=== PATIENT | female | born 1945 | race Caucasian/White ===

== ENCOUNTER 2017-04-08 12:00 | Emergency (ER) | payer OTHER ==
[~2017-04-08] VITALS: Ht 162.6 cm; Wt 73.4 kg
[2017-04-08] MEDS ORDERED: BUSP15 PO (12:40)
[2017-04-08] MEDS ORDERED: FLUT16H NASAL (12:40)
[2017-04-08] MEDS ORDERED: LISI-662 PO (12:40)
[2017-04-08] MEDS ORDERED: TRAZ-144 PO (12:40)
[2017-04-08] MEDS ORDERED: NYST15PO3 TP (12:40)
[2017-04-08] MEDS ORDERED: CEFP200T12 PO (12:40)
[2017-04-08] MEDS ORDERED: DOCU250C91 PO (12:40)
[2017-04-08] MEDS ORDERED: FAMO20 PO (12:40)
[2017-04-08] MEDS ORDERED: MELA3 PO (12:40)
[2017-04-08] MEDS ORDERED: BECL8.7A5 IH (12:40)
[2017-04-08] MEDS ORDERED: ATOR10TA84 PO (12:40)
[2017-04-08] MEDS ORDERED: PYRI60TA PO (12:40)
[2017-04-08] MEDS ORDERED: PARO20TA24 PO (12:40)
[2017-04-08] MEDS ORDERED: CALC1TAB85 PO (12:40)
[2017-04-08] MEDS ORDERED: MORP30 PO (12:40)
[2017-04-08] MEDS ORDERED: TROS60CA3 PO (12:40)
[2017-04-08] MEDS ORDERED: CLON.1 PO (12:40)
[2017-04-08] MEDS ORDERED: AMLO-512 PO (12:40)
[2017-04-08] MEDS ORDERED: HYDR-305 PO (12:40)
[2017-04-08] MEDS ORDERED: AUD NEB (12:40)
[2017-04-08] MEDS ORDERED: QUET25TA PO (12:40)
[2017-04-08] MEDS ORDERED: CLOP75 PO (12:40)
[2017-04-08] MEDS ORDERED: SIME80TA12 PO (12:40)
[2017-04-08] MEDS ORDERED: MAGN400T40 PO (12:40)
[2017-04-08] MEDS ORDERED: LACT1CAP58 PO (12:40)
[2017-04-08 12:56] LABS: BASOPHILS % (AUTO) 0.4 % (0.0-2.0); EOSINOPHILS % (AUTO) 5.1 % (1.0-6.0); HEMATOCRIT 36.2 % (36-46); HEMOGLOBIN 11.9 g/dL (12.0-16.0); LYMPHOCYTES # (AUTO) 2.1 K/uL (1.0-4.8); MEAN CORPUSCULAR HEMOGLOBIN 26.8 pg (26.0-34.0); MEAN CORPUSCULAR HGB CONC 32.9 G/dL (31.0-37.0); MEAN CORPUSCULAR VOLUME 81 fL (80-100); MONOCYTES # (AUTO) 0.8 K/uL (0.1-1.0); MONOCYTES % (AUTO) 6.6 % (2.0-9.0); NEUTROPHILS # (AUTO) 8.7 K/uL (1.8-7.7); NEUTROPHILS % (AUTO) 70.9 % (40.0-70.0); PLATELET COUNT (AUTO) 429 K/uL (150-450); RED BLOOD CELL COUNT(AUTO) 4.45 MIL/uL (4.00-5.20); RED CELL DISTRIBUTION WIDTH 16.4 % (11.5-14.5); WHITE BLOOD COUNT (AUTO) 12.3 K/uL (4.5-11.0)
[2017-04-08 13:07] LABS: ANION GAP 9 mmol/L (8-16); CALCIUM, TOTAL 9.8 mg/dL (8.8-10.5); CARBON DIOXIDE 25 mmol/L (22-29); CHLORIDE 104 mmol/L (98-107); CREATININE 0.69 mg/dL (0.60-1.30); GLOMERULAR FILTR. RATE CALC > 60 mL/min (>60); POTASSIUM 3.9 mmol/L (3.5-5.1); SODIUM SERUM 138 mmol/L (136-145); UREA NITROGEN, BLOOD 8 mg/dL (7-18)
[2017-04-08 13:13] LABS: ALANINE AMINOTRANSFERASE 21 U/L (12-78); ALBUMIN 3.2 g/dL (3.4-5.0); ASPARTATE AMINOTRANSFERASE 22 U/L (15-37); BILIRUBIN,TOTAL 0.3 mg/dL (0.1-1.0); TOTAL PROTEIN, SERUM 7.7 g/dL (6.4-8.2)
[2017-04-08 15:22] LABS: SALICYLATE 2.5 mg/dL (2.8-20.0)
[2017-04-08 15:42] LABS: CREATINE KINASE MB < 0.5 ng/mL (0-5); CREATINE KINASE, TOTAL 20 U/L (26-192)
[2017-04-08 15:43] LABS: ACETAMINOPHEN < 2 mcg/mL (10-30)
[2017-04-08 16:01] VITALS: BP 118/60
[2017-04-10 10:02] LABS: GLUCOSE,POINT OF CARE 137 MG/DL (70-110)
[2017-04-10 10:03] LABS: GLUCOSE,POINT OF CARE 169 MG/DL (70-110)
== END 2017-04-08 16:45 | disposition short-term general hospital (02) ==
LOC: EMS 12:02
DX: M79.1 Myalgia (principal); G89.29 Other chronic pain; R62.7 Adult failure to thrive; J44.9 Chronic obstructive pulmonary disease, unspecified; E11.9 Type 2 diabetes mellitus without complications; I10 Essential (primary) hypertension; F17.210 Nicotine dependence, cigarettes, uncomplicated; Z86.73 Personal history of transient ischemic attack (TIA), and cerebral infarction without residual deficits; Z88.6 Allergy status to analgesic agent; Z88.1 Allergy status to other antibiotic agents; Z88.2 Allergy status to sulfonamides; Z88.8 Allergy status to other drugs, medicaments and biological substances
CPT/HCPCS: 36415; 80053; 82550; 82553; 82962; 85025; 99285; G0480; G0481

== ENCOUNTER 2017-04-15 16:11 | Emergency (ER) | payer OTHER ==
[~2017-04-15] VITALS: Ht 162.6 cm; Wt 68.6 kg
[~2017-04-15 16:11] MED LIST: AMLO-512 PO; ATOR10TA84 PO; AUD NEB; BECL8.7A5 IH; BUSP15 PO; CALC1TAB85 PO; CEFP200T12 PO; CLON.1 PO; CLOP75 PO; DOCU250C91 PO; FAMO20 PO; FLUT16H NASAL; HYDR-305 PO; LACT1CAP58 PO; LISI-662 PO; MAGN400T40 PO; MELA3 PO; MORP30 PO; NYST15PO3 TP; PARO20TA24 PO; PYRI60TA PO; QUET25TA PO; SIME80TA12 PO; TRAZ-144 PO; TROS60CA3 PO
[2017-04-15 16:32] LABS: GLUCOSE,POINT OF CARE 110 MG/DL (70-110)
[2017-04-15 17:39] LABS: BASOPHILS # (AUTO) 0.05 K/uL (0.00-0.20); BASOPHILS % (AUTO) 0.4 % (0.0-2.0); EOSINOPHILS # (AUTO) 0.44 K/uL (0.00-0.70); EOSINOPHILS % (AUTO) 3.48 % (1.0-6.0); HEMATOCRIT 31.8 % (36-46); HEMOGLOBIN 10.4 g/dL (12.0-16.0); LYMPHOCYTES # (AUTO) 3.2 K/uL (1.0-4.8); MEAN CORPUSCULAR HEMOGLOBIN 26.9 pg (26.0-34.0); MEAN CORPUSCULAR HGB CONC 32.8 G/dL (31.0-37.0); MEAN CORPUSCULAR VOLUME 82 fL (80-100); MONOCYTES # (AUTO) 0.9 K/uL (0.1-1.0); MONOCYTES % (AUTO) 7.1 % (2.0-9.0); NEUTROPHILS # (AUTO) 8.1 K/uL (1.8-7.7); NEUTROPHILS % (AUTO) 63.9 % (40.0-70.0); PLATELET COUNT (AUTO) 392 K/uL (150-450); RED BLOOD CELL COUNT(AUTO) 3.87 MIL/uL (4.00-5.20); WHITE BLOOD COUNT (AUTO) 12.6 K/uL (4.5-11.0)
[2017-04-15 17:46] LABS: ANION GAP 10 mmol/L (8-16); CALCIUM, TOTAL 9.5 mg/dL (8.8-10.5); CARBON DIOXIDE 26 mmol/L (22-29); CHLORIDE 100 mmol/L (98-107); CREATININE 0.57 mg/dL (0.60-1.30); GLOMERULAR FILTR. RATE CALC > 60 mL/min (>60); POTASSIUM 3.6 mmol/L (3.5-5.1); SODIUM SERUM 136 mmol/L (136-145); UREA NITROGEN, BLOOD 21 mg/dL (7-18)
[2017-04-15 17:52] LABS: ALANINE AMINOTRANSFERASE 26 U/L (12-78); ALBUMIN 3.1 g/dL (3.4-5.0); ASPARTATE AMINOTRANSFERASE 20 U/L (15-37); BILIRUBIN,TOTAL 0.3 mg/dL (0.1-1.0)
[2017-04-15 19:04] LABS: APPEARANCE,URINE CLEAR (CLEAR); GLUCOSE, URINE (UA) NEGATIVE (NEGATIVE); KETONES,URINE NEGATIVE (NEGATIVE); LEUKOCYTE ESTERASE ,URINE MODERATE (NEGATIVE); OCCULT BLOOD,URINE NEGATIVE (NEGATIVE); PROTEIN,URINE NEGATIVE (NEGATIVE)
[2017-04-15 19:05] LABS: ADD UA MICROSCOPIC YES
[2017-04-15 19:15] LABS: RBC,URINE 0-2 /HPF (0-2); SQUAMOUS EPITHELIAL CELL,UR Few /LPF (None Seen)
[2017-04-15 19:27] VITALS: BP 139/74
== END 2017-04-15 20:36 | disposition short-term general hospital (02) ==
LOC: EMS 16:12
DX: R62.7 Adult failure to thrive (principal); J44.9 Chronic obstructive pulmonary disease, unspecified; E11.9 Type 2 diabetes mellitus without complications; I10 Essential (primary) hypertension; F17.210 Nicotine dependence, cigarettes, uncomplicated; Z86.73 Personal history of transient ischemic attack (TIA), and cerebral infarction without residual deficits; Z88.6 Allergy status to analgesic agent; Z88.1 Allergy status to other antibiotic agents; Z88.2 Allergy status to sulfonamides; Z88.8 Allergy status to other drugs, medicaments and biological substances
CPT/HCPCS: 81025; 82962; 87086; 99285

== ENCOUNTER 2017-05-23 17:08 | Emergency (ER) | payer OTHER ==
[~2017-05-23] VITALS: Ht 162.6 cm; Wt 68.6 kg
[~2017-05-23 17:08] MED LIST changes: -BECL8.7A5 IH; +BECL8.7A7 IH; +CLON-570 PO; -CLON.1 PO; -MELA3 PO; +MELA3TAB66 PO
[2017-05-23 18:12] LABS: GLUCOSE,POINT OF CARE 133 MG/DL (70-110)
[2017-05-23] MEDS ORDERED: TraMADol HCL 50 MG TABLET PO ONE (19:45)
[2017-05-23] MEDS ORDERED: OxyCODONE HCL/ACETAMINOPHEN 5-325 MG TABLET PO ONE (21:30)
[2017-05-23 22:03] VITALS: BP 120/72
== END 2017-05-23 22:16 | disposition short-term general hospital (02) ==
LOC: EMS 17:09
DX: S42.212A Unspecified displaced fracture of surgical neck of left humerus, initial encounter for closed fracture (principal); J44.9 Chronic obstructive pulmonary disease, unspecified; E11.9 Type 2 diabetes mellitus without complications; I10 Essential (primary) hypertension; F17.210 Nicotine dependence, cigarettes, uncomplicated; Z86.73 Personal history of transient ischemic attack (TIA), and cerebral infarction without residual deficits; Z88.6 Allergy status to analgesic agent; Z88.1 Allergy status to other antibiotic agents; Z88.8 Allergy status to other drugs, medicaments and biological substances; W19.XXXA Unspecified fall, initial encounter; Y93.9 Activity, unspecified; Y92.89 Other specified places as the place of occurrence of the external cause; Y99.8 Other external cause status
CPT/HCPCS: 82962; 99285